=== PATIENT | male | born 1965 | race Caucasian/White ===

== ENCOUNTER 2021-04-17 02:32 | Emergency (ER) | payer MEDICAID, SELFPAY ==
[2021-04-17] VITALS (21 sets, daily range): BP systolic 66–133; BP diastolic 44–74; PULSE 44–114; RESP 16–30; TEMP 36.4–36.6; O2SAT 78–97; BMI 31.1
--- NOTE | 2021-04-17 02:33 | CT_ITS ---
PROCEDURE INFORMATION: Exam: CT Head Without Contrast Exam date and time: 04/17/2021 2:33 AM Age: 56 years old Clinical indication: Altered mental status/memory loss; Confusion or disorientation; Additional info: Stroke alert TECHNIQUE: Imaging protocol: Computed tomography of the head without contrast. Radiation optimization: All CT scans at this facility use at least one of these dose optimization techniques: automated exposure control; mA and/or kV adjustment per patient size (includes targeted exams where dose is matched to clinical indication); or iterative reconstruction. Other technique: STROKE PROTOCOL was implemented. COMPARISON: No relevant prior studies available. FINDINGS: Brain: Small areas of encephalomalacia of the right sided cintron radiata. 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 The borges-white matter junction is intact. There is no other mass. There is no other hemorrhage. Cerebral ventricles: No ventriculomegaly. Paranasal sinuses: Visualized sinuses are unremarkable. No fluid levels. Mastoid air cells: Visualized mastoid air cells are well aerated. Orbital cavity: 8 mm mildly hyperdense structure within the right sided occipital lobe with slight adjacent edema. Bones/joints: Unremarkable. No acute fracture. Soft tissues: Unremarkable. IMPRESSION: 1. 8 mm mildly hyperdense structure within the right sided occipital lobe with slight adjacent edema. This is concerning for a small hemorrhagic metastatic deposit. 2. The remainder of the examination is unremarkable. There is no infarction seen. ASSESSMENT: ASPECTS ([place] Stroke Program Early CT Score) is 10.
--- NOTE | 2021-04-17 02:46 | PC.NURSE ---
Levophed decreased to 8mcg/min BP 133/67
--- NOTE | 2021-04-17 02:48 | CT_ITS ---
PROCEDURE INFORMATION: Exam: CT Angiography Head With Contrast, Arteriography Exam date and time: 04/17/2021 2:48 AM Age: 56 years old Clinical indication: Other: AMS; Additional info: Fall, AMS TECHNIQUE: Imaging protocol: Computed tomography angiography of the head with contrast. Exam focused on the arteries. 3D rendering (Not supervised by radiologist): MIP and/or 3D reconstructed images were created by the technologist. Radiation optimization: All CT scans at this facility use at least one of these dose optimization techniques: automated exposure control; mA and/or kV adjustment per patient size (includes targeted exams where dose is matched to clinical indication); or iterative reconstruction. Contrast material: ISOVUE 370; Contrast volume: 100 ml; Contrast route: INTRAVENOUS (IV); COMPARISON: CT HEAD/BRAIN WO CON 04/17/2021 2:54 AM FINDINGS: ANTERIOR CIRCULATION: Right internal carotid artery: Unremarkable. Intracranial segment is patent with no significant stenosis. No aneurysm. Right middle cerebral artery: Unremarkable. No occlusion or significant stenosis. No aneurysm. Right anterior cerebral artery: Unremarkable. No occlusion or significant stenosis. No aneurysm. Anterior communicating artery: 2 x 2 x 4 mm aneurysm arising superiorly from the anterior communicating artery. Left internal carotid artery: Occlusion of the left sided internal carotid artery. Left middle cerebral artery: Significant decrease in the amount of flow involving the left sided posterior temporal and parietal lobe compared to the contralateral side. A distinct occlusion of the middle cerebral artery is not seen. Left anterior cerebral artery: Unremarkable. No occlusion or significant stenosis. No aneurysm. POSTERIOR CIRCULATION: Right vertebral artery: Unremarkable. No occlusion or significant stenosis. No aneurysm. Left vertebral artery: Unremarkable. No occlusion or significant stenosis. No aneurysm. Basilar artery: Unremarkable. No occlusion or significant stenosis. No aneurysm. Right posterior cerebral artery: Unremarkable. No occlusion or significant stenosis. No aneurysm. Left posterior cerebral artery: Unremarkable. No occlusion or significant stenosis. No aneurysm. Brain: No hemorrhage or mass effect. Cerebral ventricles: No ventriculomegaly. Bones/joints: Unremarkable. No acute fracture. Soft tissues: Unremarkable. IMPRESSION: 1. Absence of flow within the left sided internal carotid artery secondary to the occlusion in the neck. There is minimal flow within the left sided middle cerebral artery secondary to collateral flow from the anterior cerebral artery. There is significantly decreased flow within the left sided posterior temporal and parietal lobes, likely either a watershed infarction versus an occlusion of a small middle cerebral artery branch that is not seen. 2. 2 x 2 x 4 mm aneurysm arising superiorly from the anterior communicating artery. 3. The remainder of the vascular structures are unremarkable. There is no other occlusion. There is no other significant stenosis or aneurysm.
--- NOTE | 2021-04-17 02:49 | CT_ITS ---
PROCEDURE INFORMATION: Exam: CT Angiography Neck With Contrast Exam date and time: 04/17/2021 2:49 AM Age: 56 years old Clinical indication: Other: AMS; Additional info: AMS, fall, evaluate for CVA TECHNIQUE: Imaging protocol: Computed tomography angiography of the neck with contrast. 3D rendering (Not supervised by radiologist): MIP and/or 3D reconstructed images were created by the technologist. Radiation optimization: All CT scans at this facility use at least one of these dose optimization techniques: automated exposure control; mA and/or kV adjustment per patient size (includes targeted exams where dose is matched to clinical indication); or iterative reconstruction. Contrast material: ISOVUE 370; Contrast volume: 100 ml; Contrast route: INTRAVENOUS (IV); COMPARISON: CT HEAD/BRAIN WO CON 04/17/2021 2:54 AM FINDINGS: Right common carotid artery: Right sided common carotid artery to internal carotid artery stent that is widely patent. Right internal carotid artery: See right sided common carotid artery Right external carotid artery: No occlusion or stenosis of the origin. Left common carotid artery: No stenosis. No dissection or occlusion. Left internal carotid artery: Occlusion of the left sided internal carotid artery bulb at its origin. There is no distal flow. Left external carotid artery: No occlusion or stenosis of the origin. Right vertebral artery: No stenosis. No dissection or occlusion. Left vertebral artery: No stenosis. No dissection or occlusion. Soft tissues: Normal. No significant soft tissue swelling. Bones/joints: No acute fracture. IMPRESSION: 1. Occlusion of the left sided internal carotid artery bulb at its origin. There is no distal flow. 2. Right sided common carotid artery to internal carotid artery stent that is widely patent. 3. The remainder of the vascular structures are unremarkable. There is no other occlusion. There is no other significant stenosis or aneurysm. REFERENCES: NASCET CRITERIA. The degree of internal carotid artery stenosis is based on NASCET criteria. Normal is no stenosis. Mild is less than 50% stenosis. Moderate is 50-69% stenosis. Severe is 70% to 99% stenosis. Total occlusion is no detectable patent lumen.
--- NOTE | 2021-04-17 02:50 | CT_ITS ---
PROCEDURE INFORMATION: Exam: CT Chest Without Contrast; Diagnostic Exam date and time: 04/17/2021 2:50 AM Age: 56 years old Clinical indication: Other: AMS, ldiarrhea, weakness; Additional info: Fall vs. Syncope, shock TECHNIQUE: Imaging protocol: Diagnostic computed tomography of the chest without contrast. Radiation optimization: All CT scans at this facility use at least one of these dose optimization techniques: automated exposure control; mA and/or kV adjustment per patient size (includes targeted exams where dose is matched to clinical indication); or iterative reconstruction. COMPARISON: CT CERVICAL SPINE WO CON 04/17/2021 3:07 AM FINDINGS: Lungs: Unremarkable. No consolidation. No masses. Mild compressive atelectasis of the right lower lobe. Pleural spaces: Small right basilar pleural effusion. No evidence of pneumothorax. Heart: Unremarkable. No cardiomegaly. No pericardial effusion. Coronary arteries: NThere are calcifications identified within the coronary arteries. Mediastinal space: No evidence of mediastinal or hilar mass. Aorta: Arterial atheromatous calcifications are noted. No aortic aneurysm. Lymph nodes: There are multiple enlarged left level IV and left station 1 lymph nodes identified. Within left station 1 the largest single identifiable lymph node measures 3.2 cm in diameter. There are enlarged station 4 lymph nodes identified. These are present lateral to the aorticopulmonary window, and within the precarinal region. Station 7 lymphadenopathy is identified. A conglomerate of lymph nodes within the subcarinal region measures 6.2 cm in diameter. Bilateral station 10 lymphadenopathy is additionally identified. Bones/joints: There are degenerative changes noted within the thoracic spine. No evidence of acute fracture. Soft tissues: Ascites is present within the upper abdomen. There is evidence of irregular mass identified adjacent to the superior pole the left kidney. The possibility that this represents adenopathy or mass arising from the left kidney is considered. IMPRESSION: 1. Left cervical, left supraclavicular, middle mediastinal, and hilar adenopathy identified, as described. 2. Small right basilar pleural effusion and ascites. 3. Suggestion of mass identified either arising from the superior pole of the left kidney or within the left perinephric space is considered. 4. Underlying neoplasm is suspect. Lymphoma versus metastatic adenopathy within the chest and neck. If the patient can tolerate intravenous contrast repeat computed tomography of the neck, chest, abdomen, and pelvis after contrast enhancement is suggested.
--- NOTE | 2021-04-17 02:50 | CT_ITS ---
PROCEDURE INFORMATION: Exam: CT Abdomen And Pelvis Without Contrast Exam date and time: 04/17/2021 2:50 AM Age: 56 years old Clinical indication: Injury or trauma; Fall; Blunt; Generalized; Additional info: Shock TECHNIQUE: Imaging protocol: Computed tomography of the abdomen and pelvis without contrast. Radiation optimization: All CT scans at this facility use at least one of these dose optimization techniques: automated exposure control; mA and/or kV adjustment per patient size (includes targeted exams where dose is matched to clinical indication); or iterative reconstruction. COMPARISON: No relevant prior studies available. FINDINGS: Lungs: No mass/infiltrate at either lung base. Mild compressive atelectasis right lower lobe. Minimal scar or atelectasis at the left lung base. There is a small to moderate right pleural effusion. Liver: The liver appears enlarged. There is no evidence of intra hepatic mass. No evidence of intrahepatic biliary dilatation. Gallbladder and bile ducts: Normal. No calcified stones. No ductal dilation. Gallbladder wall thickness is normal. Pancreas: Limited visualization of the pancreas. Those portions of the pancreatic body and tail which are visualized are not enlarged. No obvious ductal dilatation. Spleen: The spleen is mildly enlarged. There is no evidence of intra splenic mass. Adrenal glands: The adrenal glands are difficult to visualize on this examination. Kidneys and ureters: There is no evidence of hydronephrosis. Stomach and bowel: No evidence of obstruction. Appendix: Unremarkable. Intraperitoneal space: There is ascites within the abdomen and pelvis. No free air. Vasculature: Arterial atheromatous calcifications are noted. No abdominal aortic aneurysm. Click phleboliths Lymph nodes: There is extensive infiltration of the retroperitoneum on the present examination. Extensive adenopathy is identified within the retroperitoneum. Infiltration of the mesentery with adenopathy additionally identified. There is nodularity present within the superior aspect of the left perinephric space, compatible with adenopathy within the left perinephric space. To further evaluate these findings, repeat examination after intravenous contrast enhancement would be helpful. Urinary bladder: Unremarkable as visualized. Limited distention. Reproductive: Central prostatic calcification noted. Bones/joints: There are degenerative changes noted within the lumbar spine. No acute fracture. Soft tissues: There are multiple mildly enlarged lymph nodes identified within the inguinal regions. There is edema of soft tissues of the abdomen and pelvis, compatible with anasarca. IMPRESSION: 1. Extensive adenopathy is suspect within the abdomen and pelvis. Hepatosplenomegaly. Nodularity within the left perinephric space probably secondary to adenopathy. There is mild adenopathy within the inguinal regions. Primary diagnostic consideration would be lymphoma. 2. Compressive atelectasis right lung base with small to moderate right pleural effusion. 3. There is ascites present within the abdomen and pelvis.
--- NOTE | 2021-04-17 02:50 | CT_ITS ---
PROCEDURE INFORMATION: Exam: CT Cervical Spine Without Contrast Exam date and time: 04/17/2021 2:50 AM Age: 56 years old Clinical indication: Injury or trauma; Fall; Additional info: Fall, AMS TECHNIQUE: Imaging protocol: Computed tomography images of the cervical spine without contrast. Radiation optimization: All CT scans at this facility use at least one of these dose optimization techniques: automated exposure control; mA and/or kV adjustment per patient size (includes targeted exams where dose is matched to clinical indication); or iterative reconstruction. COMPARISON: CT HEAD/BRAIN WO CON 04/17/2021 2:54 AM FINDINGS: Bones/joints: No acute fracture. Normal alignment. Discs/Spinal canal/Neural foramina: No significant disc protrusion. No severe spinal canal stenosis. No significant neural foraminal narrowing. Lungs: Lung apices are normal. Soft tissues: Unremarkable. IMPRESSION: No evidence for significant traumatic injury of the cervical spine.
[2021-04-17 02:54] LABS: Basophils % 0.3 % (0.1-2.0); Eosinophils % 0.3 % (0.1-12.0); Hematocrit 33.9 % (42.0-52.0); Hemoglobin 10.8 g/dL (14.1-18.0); Lymphocytes # 1.4 K/mm3 (0.7-4.5); Lymphocytes % 14.6 % (10-50); Mean Corpuscular HGB Conc 31.9 g/dL (31.8-35.4); Mean Corpuscular Hemoglobin 28.3 pg (27.0-31.2); Mean Corpuscular Volume 88.7 fl (80-94); Monocytes # 0.4 K/mm3 (0.1-1.0); Monocytes % 4.3 % (1.7-9.3); Neutrophils # 7.8 K/mm3 (1.8-7.8); Neutrophils % 80.4 % (37.0-80.0); Platelet Count 297 K/mm3 (142-424); Red Blood Count 3.83 M/mm3 (4.60-6.20); Red Cell Distribution Width 14.9 % (11.5-17.5); White Blood Count 9.7 K/mm3 (4.8-10.8)
--- NOTE | 2021-04-17 02:55 | PC.NURSE ---
Pt transported to CT on monitors and accompanied by 2 RN's
--- NOTE | 2021-04-17 03:00 | ECG_ITS ---
APPROVED REPORT Exam: Resting ECG HR:98 bpm ECG Measurements Heart Rate 98 AXES MD 165 P 89 QRSd 106 QRS 84 QT 364 T 75 QTc 419 Conclusion SINUS RHYTHM POSSIBLE LEFT ATRIAL ENLARGEMENT [-0.1mV P-WAVE IN V1/V2] INCOMPLETE RIGHT BUNDLE BRANCH BLOCK [90+ ms QRS DURATION, TERMINAL R IN V1/V2, 40+ ms S IN I/aVL/V4/V5/V6] MODERATE ST DEPRESSION [0.05+ mV ST DEPRESSION] ABNORMAL ECG UNCONFIRMED REPORT Electronically signed by : Brigido Marks MD 04/17/2021 08:51:35
[2021-04-17 03:06] LABS: Activated Partial Thrombo Time 33.3 seconds (22.8-30.6); Prothrombin Time 16.4 seconds (10.1-12.5)
[2021-04-17 03:12] LABS: Ammonia 32 umol/L (9-30)
[2021-04-17 03:15] LABS: Anion Gap 21.3 mEq/L (5-15); Blood Urea Nitrogen 60 mg/dl (9-20); Carbon Dioxide 23 mmol/L (22.0-30.0); Chloride 92 mmol/L (98-107); Creatine Kinase 72 U/L (55-170); Creatinine Clearance Estimated 63 mL/min (50-200); Potassium 5.3 mmoL/L (3.5-5.1); Sodium 131 mmol/L (136-145)
[2021-04-17 03:16] LABS: Alanine Aminotransferase 261 U/L (12-78); Albumin Level 3.3 g/dl (3.5-5.0); Albumin/Globulin Ratio 0.9 (1.1-1.8); Bilirubin,Total 8.4 mg/dl (0.2-1.3); Calcium 8.8 mg/dl (8.4-10.2); Estimated Glomerular Filt Rate 37 ml/min (>60); GFR (African American) 44 ML/MIN (>60); Globulin 3.5 g/dL (1.3-3.2); Glucose 97 mg/dl (74-100); Magnesium 2.2 mg/dl (1.6-2.3); Phosphorous 6.3 mg/dl (2.5-4.5); Total Protein,Serum 6.8 g/dl (6.3-8.2)
[2021-04-17 03:20] LABS: Aspartate Amino Transferase 706 U/L (17-59)
[2021-04-17 03:21] LABS: C-Reactive Protein 317.8 mg/L (0-4)
[2021-04-17 03:27] LABS: NT Pro Brain Natriuretic Pep. 2290 pg/mL (0-125)
[2021-04-17 03:28] LABS: Alkaline Phosphatase 2166 U/L (38-126)
[2021-04-17 03:30] LABS: CKMB Relative Index 1.1 U/L (0-4.0); Creatine Kinase MB 0.8 ng/ml (0.0-2.03); Troponin I 0.04 ng/ml (0.00-0.034)
--- NOTE | 2021-04-17 03:30 | PC.NURSE ---
Verbal order for soft restraints give from MD Dane d/t pt risk of removing IV and not laying still for CT imaging. One-on-one observation initiated at this time.
--- NOTE | 2021-04-17 03:33 | [facility].EDGENADL ---
ED Disposition Clinical Impression: Metastatic disease Qualifiers: Area of secondary neoplastic involvement: unspecified site Qualified Code(s): C79.9 - Secondary malignant neoplasm of unspecified site Sepsis Qualifiers: Sepsis type: sepsis due to unspecified organism Sepsis acute organ dysfunction status: unspecified Qualified Code(s): A41.9 - Sepsis, unspecified organism Disposition: Xfer [facility] Condition on Discharge: Serious - Critical Care Critical Care Time: Yes Attestation: On , the high probability of a clinically significant, sudden or life threatening deterioration of the following system(s) required my full and direct attention, intervention and personal management. The time I documented below is in addition to time spent performing reported procedures but includes the following listed in this critical care notation. Vital system(s) involved:: Circulatory Failure, Central Nervous System, Shock (Septic) My critical care processes included: Assessment & monitoring of V/S, Initial and Re-exams, Data Review/Interpretation, Coordinating Care, Medication Orders and management, Documentation Medical Decision Making - Medical Records Medical records reviewed: Yes: I reviewed the patient's medical records. - Adolfo Inquiry Pt receiving controlled substance: No Vital Signs: 04/17/21 02:32 04/17/21 04:10 Temperature 97.6 F 97.8 F Temperature Source Rectal Rectal Pulse Rate 102 H Pulse Rate [Left Radial] 44 L Respiratory Rate 22 24 Blood Pressure 98/54 L Blood Pressure [Right Arm] 66/44 L Blood Pressure Mean [Right Arm] 51 Blood Pressure Source Automatic Cuff Blood Pressure Source [Right Arm] Manual Cuff/ Auscultation Blood Pressure Position Sitting Blood Pressure Position [Right Arm] Supine 02 Sat by Pulse Oximetry 78 L 97 Oxygen Delivery Method Non-Rebreather Nasal Cannula Oxygen Flow Rate (LPM) 6 - Lab Data Lab results reviewed: Yes: I reviewed the patient's lab results. Lab Results 04/17/21 02:30: WBC 9.7, RBC 3.83 L, Hgb 10.8 L, Hct 33.9 L, MCV 88.7, MCH 28.3, MCHC 31.9, RDW 14.9, Plt Count 297, MPV 10.0, Neut % (Auto) 80.4 H, Lymph % (Auto) 14.6, Cherry % (Auto) 4.3, Eos % (Auto) 0.3, Baso % (Auto) 0.3, Neut # (Auto) 7.8, Lymph # (Auto) 1.4, Cherry # (Auto) 0.4, Eos # (Auto) 0.0, Baso # (Auto) 0.0 04/17/21 02:30: PT 16.4 H, INR 1.50 H, APTT 33.3 H 04/17/21 02:30: Sodium 131 L, Potassium 5.3 H, Chloride 92 L, Carbon Dioxide 23, Anion Gap 21.3 H, BUN 60 H, Creatinine 1.90 H, Estimated Creat Clear 63, Estimated GFR 37 L, Est GFR ( Amer) 44 L, Glucose 97, Calcium 8.8, Magnesium 2.2, Total Bilirubin 8.4 H, AST 706 H*, ALT 261 H, Alkaline Phosphatase 2166 H, Total Creatine Kinase 72, CK-MB (CK-2) 0.8, CK-MB (CK-2) Rel Index 1.1, Troponin I 0.04 H, C-Reactive Protein 317.8 H, Total Protein 6.8, Albumin 3.3 L, Globulin 3.5 H, Albumin/Globulin Ratio 0.9 L 04/17/21 02:30: Phosphorus 6.3 H, NT-Pro-B Natriuret Pep 2290 H 04/17/21 02:30: Ammonia 32 H 04/17/21 03:30: Lactate 5.8 H 04/17/21 03:30: SARS-CoV-2 (PCR) Not detected, Influenza A Untype (PCR) Not detected, Influenza Type B (PCR) Not detected 04/17/21 03:49: Urine Color Brown, Urine Appearance Cloudy, Urine pH 6.5, Ur Specific [place] 1.025, Urine Protein 2+, Urine Glucose (UA) 2+, Urine Ketones Trace, Urine Blood Trace-l, Urine Nitrate Positive, Urine Bilirubin 3+ A, Urine Urobilinogen 1.0, Ur Leukocyte Esterase Trace, Urine RBC 3-5, Urine WBC 5-10, Ur Squamous Epith Cells 5-10, Amorphous Sediment 1+, Urine Bacteria 1+, Hyaline Casts 3-5, Coarse Granular Casts 5-10, Waxy Casts 5-10 Result diagrams: 04/17/21 02:30 04/17/21 02:30 Orders (Tests/Meds): ED MEDICATIONS Generic Name Dose Route Start Last Admin Trade Name Freq PRN Reason Stop Dose Admin Piperacillin Sod/Tazobactam 100 mls @ 200 mls/hr 04/17/21 03:00 04/17/21 04:01 Sod 4.5 gm/ Sodium Chloride IV 05/01/21 03:59 200 mls/hr Q6H FELIPE Administration Norepinephrin
[2021-04-17 03:40] LABS: Coronavirus 19, PCR Not Detected (NotDetected); Influenza A, PCR Not Detected (NotDetected); Influenza B, PCR Not Detected (NotDetected)
--- NOTE | 2021-04-17 03:43 | PC.NURSE ---
MD Dane speaking with TONI at this time for critical report.
[2021-04-17 03:52] LABS: Lactic Acid 5.8 mmol/L (0.7-2.1)
--- NOTE | 2021-04-17 03:54 | PC.NURSE ---
MD Dane speaking to MILADIS again over critical report.
--- NOTE | 2021-04-17 03:56 | PC.NURSE ---
speaking with [facility] MD's at this time. Pt accepted to [facility] by Richa Ceballos MD
[2021-04-17 03:57] LABS: Microscopic, Urine URINE MICROSCOPIC (MICROSCOPIC)
[2021-04-17 04:02] LABS: Appearance,Urine CLOUDY (Clear); Blood, Urine TRACE-L (Negative); Color,Urine BROWN (Yellow); Glucose,Urine (UA) 2+ (Negative); Ketones,Urine TRACE (Negative); Leukocyte Esterase,Urine TRACE (Negative); Nitrate,Urine POSITIVE (Negative); PH,Urine 6.5 (5.0-8.5); Protein,Urine 2+ (Negative); Specific Gravity, Urine 1.025 (1.005-1.030)
--- NOTE | 2021-04-17 04:03 | PC.NURSE ---
[facility] accepted the call @402am will return call in route
[2021-04-17 04:06] LABS: Bilirubin,Urine 3+ (Negative)
[2021-04-17 04:07] LABS: Amorphous Sediment,Urine 1+ /lpf; Bacteria,Urine 1+ /lpf
--- NOTE | 2021-04-17 04:15 | PC.NURSE ---
speaking with TONI over critical finding.
--- NOTE | 2021-04-17 04:22 | PC.NURSE ---
REPORT TO MIKEY WELCH RN.
--- NOTE | 2021-04-17 04:25 | PC.NURSE ---
0232 PT ARRIVED VIA EMS; RESPONSIVE ONLY TO PAIN. C-SPINE IMMOBILIZATION PLACED. EMS STATES PT WAS FOUND LYING IN STOOL AND NON RESPONSIVE. # 20 TO L AC UPON ARRIVAL. #18 PLACED TO R AC. LEVOPHED INITIATED AT 0243. PT TRANSFERRED TO CT @ 0255. 0316: PT RECEIVED ATIVAN DUE TO THREAT TO REMOVE IV TUBING. PT COMBATIVE; MOVING ALL EXTREMITIES BUT NOT RESPONDING TO VERBAL COMMANDS. MD REVIEWED CT AND ABLE TO IDENTIFY NO BLEED AT THIS TIME. PT RETURN FROM CT AT 0331. RADIOLOGY NOTIFICATION TO MD AT 0343 WITH OCCLUSION TO L CAROTID AND LESION TO RIGHT OCCIPITAL. MD NOTIFIED OF NEED TO TRANSFER AT 0356. REPORT TO MIKEY WELCH IN ER. FLIGHT TEAM AWARE OF PLAN TO TRANSFER.
--- NOTE | 2021-04-17 04:39 | PC.NURSE ---
Gregods receiving bedside report for ROSIE Corbett at this time.
--- NOTE | 2021-04-17 04:44 | PC.NURSE ---
REPORT TO DRE VELEZ WITH [facility].
--- NOTE | 2021-04-17 04:48 | PC.NURSE ---
0246-Levo decreased to 8mcg/min dt BP 133/67 0348- Levo increased to 10mcg/min dt BP 90/48 0411- Levo increased to 12mcg/min dt BP 90/52
--- NOTE | 2021-04-17 05:02 | XR_ITS ---
PROCEDURE INFORMATION: Exam: XR Chest Exam date and time: 04/17/2021 5:02 AM Age: 56 years old Clinical indication: Device placement; Ett placement (vent status); Additional info: PT intubated. Code 500 TECHNIQUE: Imaging protocol: XR of the chest. Views: 1 view. COMPARISON: CT CHEST WO CON 04/17/2021 3:12 AM FINDINGS: Tubes, catheters and devices: Endotracheal tube terminates approximately 5 cm above the kiarra. Defibrillator pad overlies the right hemithorax. Lungs: Unremarkable. No consolidation. Pleural spaces: Layering right pleural effusion. No pneumothorax. Heart/Mediastinum: Unremarkable. No cardiomegaly. Bones/joints: Unremarkable. IMPRESSION: 1. Endotracheal tube terminates approximately 5 cm above the kiarra. 2. Layering right pleural effusion.
--- NOTE | 2021-04-17 05:03 | ECG_ITS ---
APPROVED REPORT Exam: Resting ECG HR:132 bpm ECG Measurements Heart Rate 132 AXES QRSd 115 QRS 84 QT 303 T 31 QTc 381 Conclusion ATRIAL FLUTTER/TACHYCARDIA WITH RAPID VENTRICULAR RESPONSE INCOMPLETE RIGHT BUNDLE BRANCH BLOCK [90+ ms QRS DURATION, TERMINAL R IN V1/V2, 40+ ms S IN I/aVL/V4/V5/V6] ST DEPRESSION, CONSIDER SUBENDOCARDIAL INJURY [0.1+ mV ST DEPRESSION] ABNORMAL ECG UNCONFIRMED REPORT Electronically signed by : Brigido Marks MD 04/17/2021 14:16:30
--- NOTE | 2021-04-17 05:25 | PC.NURSE ---
TOOK POST INTUBATION SPUTUM TO LAB @ 0965
--- NOTE | 2021-04-17 05:39 | PC.NURSE ---
AT 0452 AFTER ARRIVAL OF [facility] FLIGHT TEAM - PT WAS BEING SWITCHED FOR TRANSPORT, PT VOMITED X 2 THEN BECAME PULSE LESS AND ASYSTOLE ON THE MONITOR. JORGE LUIS COVINGTON WAS CALLED. CHEST COMPRESSIONS WERE INITIATED WITH VENTILATIONS PER AMBU BAG. 0454 PT IN PEA JUNCTIONAL RHYTHM PER MONITOR NO PULSE. EPI 1 AMP ADMINISTERED. 0456 COMPRESSIONS CONTINUE; PREPARE FOR INTUBATION, VENTILATIONS PER AMBU. 0457 EPI SECOND AMP ADMINISTERED. PULSE CHECK JUNCTIONAL ON THE MONITOR. 0458 CALCIUM ADMINISTERED. PT WITH PULSE. ST ON MONITOR RATE 133. BP 209/? ETT PLACED PER ETT SIZE 8 AT 24 LIP LINE. PLACEMENT CONFIRMED PER AUSCULTATION. RADIOLOGY NOTIFIED OF NEED FOR CXR FOR FURTHER CONFIRMATION. 0500 I/O PLACED PER [facility]. END TIDAL CO2 44. 0502 STERILE SX PER ETT PER RESPIRATORY. 0503 PULSES REMAIN PRESENT HR 129. 0505 CXR PERFORMED FOR TUBE PLACEMENT 0507 BP 176/93 SP02 96% 0508 OG PLACED AT 60 AND SECURED TO ETT PER DEBORAH FINNEGAN RN. PLACEMENT VERIFIED PER DEBORAH FINNEGAN RN. 0509 BP 182/84 ST 112 SPO2 98% 0514 SPO2 96% ST 121 115/77 0529 OUT THE DOOR WITH [facility]. BP 112/74 HR 114 16 T. 97.8
[2021-04-17 07:38] LABS: Reflex Lactic Add Lactic Reflex
--- NOTE | 2021-04-17 08:12 | P.CONPHA_ITS ---
- Pharmacy Consult Date: 04/17/21 Time: 08:12 Referring provider: DR. BYERS Reason for Consult:: VANCOMYCIN DOSING Allergies and ADEs:: Allergies Allergy/AdvReac Type Severity Reaction Status Date / Time No Known Allergies Allergy Verified 04/17/21 03:03 Home Medications:: Home Medications Medication Instructions Recorded Confirmed Type Unobtainable 04/17/21 04/17/21 History Height: 1.83 m Weight: 104.326 kg Laboratory Results:: Laboratory Results - last 24 hr 04/17/21 02:30: WBC 9.7, RBC 3.83 L, Hgb 10.8 L, Hct 33.9 L, MCV 88.7, MCH 28.3, MCHC 31.9, RDW 14.9, Plt Count 297, MPV 10.0, Neut % (Auto) 80.4 H, Lymph % (Auto) 14.6, [place] % (Auto) 4.3, Eos % (Auto) 0.3, Baso % (Auto) 0.3, Neut # (Auto) 7.8, Lymph # (Auto) 1.4, [place] # (Auto) 0.4, Eos # (Auto) 0.0, Baso # (Auto) 0.0 04/17/21 02:30: PT 16.4 H, INR 1.50 H, APTT 33.3 H 04/17/21 02:30: Sodium 131 L, Potassium 5.3 H, Chloride 92 L, Carbon Dioxide 23, Anion Gap 21.3 H, BUN 60 H, Creatinine 1.90 H, Estimated Creat Clear 63, Estimated GFR 37 L, Est GFR ( Amer) 44 L, Glucose 97, Calcium 8.8, Magnesium 2.2, Total Bilirubin 8.4 H, AST 706 H*, ALT 261 H, Alkaline Phosphatase 2166 H, Total Creatine Kinase 72, CK-MB (CK-2) 0.8, CK-MB (CK-2) Rel Index 1.1, Troponin I 0.04 H, C-Reactive Protein 317.8 H, Total Protein 6.8, Albumin 3.3 L, Globulin 3.5 H, Albumin/Globulin Ratio 0.9 L 04/17/21 02:30: Phosphorus 6.3 H, NT-Pro-B Natriuret Pep 2290 H 04/17/21 02:30: Ammonia 32 H 04/17/21 03:30: Lactate 5.8 H 04/17/21 03:30: SARS-CoV-2 (PCR) Not detected, Influenza A Untype (PCR) Not detected, Influenza Type B (PCR) Not detected 04/17/21 03:49: Urine Color Brown, Urine Appearance Cloudy, Urine pH 6.5, Ur Specific [place] 1.025, Urine Protein 2+, Urine Glucose (UA) 2+, Urine Ketones Trace, Urine Blood Trace-l, Urine Nitrate Positive, Urine Bilirubin 3+ A, Urine Urobilinogen 1.0, Ur Leukocyte Esterase Trace, Urine RBC 3-5, Urine WBC 5-10, Ur Squamous Epith Cells 5-10, Amorphous Sediment 1+, Urine Bacteria 1+, Hyaline Casts 3-5, Coarse Granular Casts 5-10, Waxy Casts 5-10 Assessment and Plan - Assessment and plan all Dx Assessment and Plan for all problems:: Age: 56 yo Serum creatinine: 1.9 mg/dL Height: 72.0 Inches Weight (kg): 104.3 Assessment: IBW (kg): 77.60 Dosing wt(kg): 104.3 Estimated Creatinine clearance (ml/min): 47.1 CRCL method: Cockcroft and Gault using ibw(default). Drug selected: Vancomycin Loading dose (mg): 0 Vd (liters): 83.4 (factor used: 0.8 L/kg) Lito (hr-1): 0.043 Half life (hrs): 16.12 Recommended dose: 1500 mg Interval: 18 hrs Infusion time (hrs): 2.0 Predicted peak (mcg/mL): 32.0 Predicted trough (mcg/mL): 16.08 Total body weight is being used for vancomycin dosing. Recommendations: Give Vancomycin 1500 mg q 18 hrs with an expected Cpeak of 32.0 mcg/ml and an expected Ctrough of 16.08 mcg/ml. ----Vanco only - ignore for aminoglycosides----- CLvanco= 3.59 L/hr AUC 0-24 /ALEXA Data: ALEXA 0.5 mcg/mL: AUC/ALEXA: 1114.2 ALEXA 1.0 mcg/mL: AUC/ALEXA: 557.1 --------- ALEXA 1.5 mcg/mL: AUC/ALEXA: 371.4 ALEXA 2.0 mcg/mL: AUC/ALEXA: 278.6 Thank you for the consult, will continue to follow.
[2021-04-18 16:03] LABS: ABG HCO3 21.4 mmhg (22.0-26.0); ABG PCO2 46.8 mmhg (35.0-45.0); ABG PH 7.28 mmol/L (7.35-7.45); ABG TCO2 22.9 mmhg (23-27)
[2021-04-18 16:04] LABS: ABG Base Excess -5.3 mmol/L (-2.4-2.3); ABG Oxygen Saturation 99 % (90-100); Oxygen 100 %
[2021-04-18 16:05] LABS: Allen's Test ACCEPTABLE; Source R RADIAL
== END 2021-04-17 05:29 | disposition critical access hospital (66) ==
PROVIDERS: Emergency Provider Emergency Medicine; PCP Emergency Medicine
DX: A41.89 Other specified sepsis (principal); C80.1 Malignant (primary) neoplasm, unspecified; C79.9 Secondary malignant neoplasm of unspecified site; W18.39XA Other fall on same level, initial encounter; Y92.129 Unspecified place in nursing home as the place of occurrence of the external cause; I63.89 Other cerebral infarction
CPT/HCPCS: 31500; 70450; 70496; 70498; 71045; 71250; 72125; 74176; 80053; 81001; 82140; 82550; 82553; 82803; 83605; 83735; 83880; 84100; 84484; 85025; 85610; 85730; 86140; 87040; 87070; 87086; 87205; 93005; 96365; 96366; 96367; 96375; 99285; 99291; 99292; C9803; J2405; J2543; J3370; Q9967; U0003; U0005